=== PATIENT | female | born 1995 | race American Indian/Alaskan Native ===

== ENCOUNTER 2018-03-25 13:07 | Emergency (ER) | payer SELFPAY ==
--- NOTE | 2018-03-25 19:33 | Emergency Department Report ---
- General Chief complaint: Skin/Abscess/Foreign Body Stated complaint: ABD PAIN Time Seen by Provider: 03/25/18 19:28 Source: patient Mode of arrival: Ambulatory Limitations: No Limitations - History of Present Illness Initial comments: 22-year-old female comes in complaining of a knot above her belly button that she's noticed for 3 days. Patient reports that it is painful to touch is painful when she laughs stretches or bear down. She denies any drainage from the knot. Patient reports no past medical history does not have a fever chills no nausea no vomiting. Last menstrual period was 02/27/2018. She has no known drug allergies currently takes no medications on a daily basis. Not taking anything for the pain and discomfort. -: days(s) (3) Tetanus Up to Date: yes Severity scale (0 -10): 8 Quality: sharp Consistency: intermittent Worsens with: palpation, other (straining, laughing, stretching) Associated symptoms: denies other symptoms Treatments Prior to Arrival: none - Related Data Previous Rx's Medication Instructions Recorded Last Taken Type Cephalexin [Keflex] 250 mg PO QID #40 capsule 03/26/18 Unknown Rx Ibuprofen [Motrin 600 MG tab] 600 mg PO Q8H PRN #15 tablet 03/26/18 Unknown Rx Allergies Allergy/AdvReac Type Severity Reaction Status Date / Time No Known Allergies Allergy Unverified 03/25/18 13:14 Abscess Boil HPI - HPI Chief Complaint: Skin/Abscess/Foreign Body Stated Complaint: ABD PAIN Time Seen by Provider: 03/25/18 19:28 Home Medications: Previous Rx's Medication Instructions Recorded Last Taken Type Cephalexin [Keflex] 250 mg PO QID #40 capsule 03/26/18 Unknown Rx Ibuprofen [Motrin 600 MG tab] 600 mg PO Q8H PRN #15 tablet 03/26/18 Unknown Rx Allergies/Adverse Reactions: Allergies Allergy/AdvReac Type Severity Reaction Status Date / Time No Known Allergies Allergy Unverified 03/25/18 13:14 ED Review of Systems ROS: Stated complaint: ABD PAIN Other details as noted in HPI Skin: other (not above the umbilicus) ED Past Medical Hx - Past Medical History Previous Medical History?: No - Surgical History Past Surgical History?: No - Social History Smoking Status: Never Smoker Substance Use Type: None - Medications Home Medications: Home Medications Medication Instructions Recorded Confirmed Last Taken Type Cephalexin [Keflex] 250 mg PO QID #40 capsule 03/26/18 Unknown Rx Ibuprofen [Motrin 600 MG tab] 600 mg PO Q8H PRN #15 tablet 03/26/18 Unknown Rx ED Physical Exam - General Limitations: No Limitations General appearance: alert, in no apparent distress - Head Head exam: Present: atraumatic, normocephalic - Eye Eye exam: Present: normal appearance - ENT ENT exam: Present: mucous membranes moist - Neck Neck exam: Present: normal inspection - Respiratory Respiratory exam: Present: normal lung sounds bilaterally. Absent: respiratory distress - Cardiovascular Cardiovascular Exam: Present: regular rate, normal rhythm. Absent: systolic murmur, diastolic murmur, rubs, gallop - GI/Abdominal GI/Abdominal exam: Present: normal bowel sounds, mass (above the umbilicus) - Extremities Exam Extremities exam: Present: normal inspection, full ROM - Neurological Exam Neurological exam: Present: alert, oriented X3 - Psychiatric Psychiatric exam: Present: normal affect, normal mood - Skin Skin exam: Present: warm, dry, intact, normal color. Absent: rash ED Course Vital Signs 03/25/18 03/25/18 03/25/18 13:14 19:57 20:35 Temperature 99.6 F Pulse Rate 65 Respiratory 18 16 18 Rate Blood Pressure 105/65 Blood Pressure [Right] O2 Sat by Pulse 100 Oximetry 03/26/18 00:26 Temperature Pulse Rate 66 Respiratory 18 Rate Blood Pressure Blood Pressure 110/66 [Right] O2 Sat by Pulse 100 Oximetry ED Medical Decision Making - Lab Data Result diagrams: 03/25/18 Unknown 03/25/18 Unknown - Radiology Data Radiology results: report reviewed, image reviewed FINAL REPORT EXAM: US ABDOMEN LIMITED HISTORY: superior mass above the umbilicus TECHNIQUE: Grayscale and color flow imaging of the soft tissues in the region of the umbilicus was performed. Comparison: None FINDINGS: Just above the level of the umbilicus there is an approximately 1.1 centimeter x 0.6 centimeter x 1.3 centimeter mass in the subcutaneous soft tissues that demonstrates echogenicity similar to fat and may represent a hernia that contains fat. More superiorly in the subcutaneous fat there is a hypoechoic somewhat irregularly shaped structure that measures approximately 1.1 centimeter x 0.7 centimeter x 1.1 centimeter. The contents of this collection are hypoechoic with internal echoes and through transmission. This has the appearance of a complex collection containing fluid. In the proper clinical setting this may represent an abscess. IMPRESSION: 1. Two masses in the supraumbilical region 1 of which contains fat and 1 of which appears to contain complex fluid. The fatty containing mass may represent a hernia. The mass containing complex fluid may represent an abscess in the proper clinical setting. If further imaging is required, CT through this region with IV contrast may be helpful. Transcribed By: ED Dictated By: LISSA BURLESON MD Electronically Authenticated By: LISSA BURLESON MD Signed Date/Time: 03/25/182121 DD/ 21 TD/TT: 03/25/182121 FINAL REPORT EXAM: CT ABDOMEN W CON HISTORY: 2 masses concerning for hernia versus abscess TECHNIQUE: CT evaluation performed of the abdomen and pelvis without IV or oral contrast administration. Coronal and sagittal imaging also provided for interpretation. PRIORS: Abdominal ultrasound dated 03/25/2018. FINDINGS: Lower thorax: The lung bases are clear. The visualized portions of the heart are normal. Liver: No focal lesions identified of the liver. No intrahepatic biliary ductal dilation. Gallbladder/ biliary system: No cholelithiasis. No extrahepatic biliary ductal dilation. Spleen: No splenic lesions are seen. Pancreas: No pancreatic lesions are seen. No pancreatic duct dilation. Kidneys: No kidney lesions identified. No hydronephrosis. No ureteral or renal calcifications. Adrenal glands: No adrenal masses. Vasculature: The abdominal and pelvic vasculature demonstrates a normal appearance. Lymph nodes: No enlarged lymph nodes are seen in the abdomen or pelvis. Bowel, mesentery, peritoneum: No bowel obstruction. No colonic diverticulosis. The appendix is normal. No free intra-abdominal fluid or air. Moderate volume formed colonic stool. Urinary bladder: No calculi or wall thickening. Pelvis: Normal anatomy is noted. No masses. Abdominal wall: Located superior to the umbilicus approximately 2.2 cm in the midline there is a focal 0.9 x 1.1 cm nodular region positioned within the subcutaneous fat which contacts the skin surface (axial image 70; coronal image 14). There is no definite peripherally enhancing collection. There is no focal hernia in this location or extension into the abdominal cavity. Mild adjacent stranding of the subcutaneous fat is present. The umbilicus is mildly prominent however there is no definite abdominal wall defect in this location (axial image 84). Bones: No acute osseous abnormality. IMPRESSION: 0.9 x 1.1 cm nodular region position within the subcutaneous fat which contacts the skin surface and is located 2.2 cm superior to the umbilicus. Finding may represent a small phlegmon or complex collection in the appropriate clinical setting. Correlation with clinical exam is requested. There is no extension with the abdominal cavity. No focal ventral abdominal hernia is present. Transcribed By: WNOG Dictated By: TANA SEARS DO Electronically Authenticated By: TANA SEARS DO Signed Date/Time: 03/26/18236 DD/ 6 TD/TT: 03/26/18236 - Medical Decision Making Patient has been evaluated by this provider fast track. Ibuprofen order for pain management. Ultrasound ordered. CT order for clarity. Will discharge patient on Keflex and ibuprofen with follow-up to surgery. Dr. Arredondo has been aware of this case. Critical care attestation.: If time is entered above; I have spent that time in minutes in the direct care of this critically ill patient, excluding procedure time. ED Disposition Clinical Impression: Phlegmon Disposition: DC-01 TO HOME OR SELFCARE Is pt being admited?: No Does the pt Need Aspirin: No Condition: Stable Instructions: Abscess (ED) Additional Instructions: Complete antibiotics as prescribed. Pain medication as needed. It's very important for you to follow up with surgery I have listed their information below. Prescriptions: Cephalexin [Keflex] 250 mg PO QID #40 capsule Ibuprofen [Motrin 600 MG tab] 600 mg PO Q8H PRN #15 tablet PRN Reason: Pain Referrals: PRIMARY CARE, [Primary Care Provider] - 3-5 Days GARCIA SALVADOR DO [Staff Physician] - 3-5 Days Forms: Work/School Release Form(ED), Accompanied Note
[2018-03-25] MEDS ORDERED: MOTRIN PO ONE (19:47)
--- NOTE | 2018-03-25 21:28 | Ultrasound Report ---
FINAL REPORT EXAM: US ABDOMEN LIMITED HISTORY: superior mass above the umbilicus TECHNIQUE: Grayscale and color flow imaging of the soft tissues in the region of the umbilicus was performed. Comparison: None FINDINGS: Just above the level of the umbilicus there is an approximately 1.1 centimeter x 0.6 centimeter x 1.3 centimeter mass in the subcutaneous soft tissues that demonstrates echogenicity similar to fat and may represent a hernia that contains fat. More superiorly in the subcutaneous fat there is a hypoechoic somewhat irregularly shaped structure that measures approximately 1.1 centimeter x 0.7 centimeter x 1.1 centimeter. The contents of this collection are hypoechoic with internal echoes and through transmission. This has the appearance of a complex collection containing fluid. In the proper clinical setting this may represent an abscess. IMPRESSION: 1. Two masses in the supraumbilical region 1 of which contains fat and 1 of which appears to contain complex fluid. The fatty containing mass may represent a hernia. The mass containing complex fluid may represent an abscess in the proper clinical setting. If further imaging is required, CT through this region with IV contrast may be helpful.
[2018-03-25 22:59] LABS: Basophils % (Auto) 0.5 % (0.0-1.8); Eosinophils # (Auto) 0.1 K/mm3 (0.0-0.4); Eosinophils % (Auto) 0.9 % (0.0-4.3); Hematocrit 35.4 % (30.3-42.9); Hemoglobin 11.8 gm/dl (10.1-14.3); Lymphocytes # (Auto) 3.3 K/mm3 (1.2-5.4); Lymphocytes % (Auto) 37.7 % (13.4-35.0); Mean Corpuscular HGB Conc 33 % (30-34); Mean Corpuscular Hemoglobin 30 pg (28-32); Mean Corpuscular Volume 90 fl (79-97); Monocytes # (Auto) 0.7 K/mm3 (0.0-0.8); Monocytes % (Auto) 7.5 % (0.0-7.3); Platelet Count 243 K/mm3 (140-440); Red Blood Count 3.91 M/mm3 (3.65-5.03); Red Cell Distribution Width 13.7 % (13.2-15.2)
[2018-03-25 23:16] LABS: BUN/Creatinine Ratio 13; Blood Urea Nitrogen 5 mg/dL (7-17); Calcium 8.9 mg/dL (8.4-10.2); Hemolysis Index 2
[2018-03-26 00:27] VITALS: BP 110/66
--- NOTE | 2018-03-26 02:45 | Cat Scan Report ---
FINAL REPORT EXAM: CT ABDOMEN W CON HISTORY: 2 masses concerning for hernia versus abscess TECHNIQUE: CT evaluation performed of the abdomen and pelvis without IV or oral contrast administration. Coronal and sagittal imaging also provided for interpretation. PRIORS: Abdominal ultrasound dated 03/25/2018. FINDINGS: Lower thorax: The lung bases are clear. The visualized portions of the heart are normal. Liver: No focal lesions identified of the liver. No intrahepatic biliary ductal dilation. Gallbladder/ biliary system: No cholelithiasis. No extrahepatic biliary ductal dilation. Spleen: No splenic lesions are seen. Pancreas: No pancreatic lesions are seen. No pancreatic duct dilation. Kidneys: No kidney lesions identified. No hydronephrosis. No ureteral or renal calcifications. Adrenal glands: No adrenal masses. Vasculature: The abdominal and pelvic vasculature demonstrates a normal appearance. Lymph nodes: No enlarged lymph nodes are seen in the abdomen or pelvis. Bowel, mesentery, peritoneum: No bowel obstruction. No colonic diverticulosis. The appendix is normal. No free intra-abdominal fluid or air. Moderate volume formed colonic stool. Urinary bladder: No calculi or wall thickening. Pelvis: Normal anatomy is noted. No masses. Abdominal wall: Located superior to the umbilicus approximately 2.2 cm in the midline there is a focal 0.9 x 1.1 cm nodular region positioned within the subcutaneous fat which contacts the skin surface (axial image 70; coronal image 14). There is no definite peripherally enhancing collection. There is no focal hernia in this location or extension into the abdominal cavity. Mild adjacent stranding of the subcutaneous fat is present. The umbilicus is mildly prominent however there is no definite abdominal wall defect in this location (axial image 84). Bones: No acute osseous abnormality. IMPRESSION: 0.9 x 1.1 cm nodular region position within the subcutaneous fat which contacts the skin surface and is located 2.2 cm superior to the umbilicus. Finding may represent a small phlegmon or complex collection in the appropriate clinical setting. Correlation with clinical exam is requested. There is no extension with the abdominal cavity. No focal ventral abdominal hernia is present.
== END 2018-03-26 03:15 | disposition home or self-care (01) ==
LOC: ED 13:07
DX: K65.1 Peritoneal abscess (principal)
CPT/HCPCS: 36415; 74160; 76705; 80048; 84703; 85025; 99284; Q9967